=== PATIENT | male | born 1970 | race Caucasian/White ===

== ENCOUNTER 2023-08-07 13:32 | Emergency (ER) | payer OTHER ==
[2023-08-07 13:46] VITALS: TEMP 97.8; BMI 31.9
[2023-08-07 15:25] LABS: VENOUS BASE EXCESS 1.8 mmol/L (-2-2); VENOUS O2 SATURATION 59.8 % (70-80); VENOUS PCO2 45.1 mmHg (38-52); VENOUS PH 7.399 (7.310-7.410)
[2023-08-07 15:26] LABS: BASO % 0.6 % (0-2.0); HEMATOCRIT 47.1 % (35.4-49); HEMOGLOBIN 16.3 GM/dL (11.7-16.9); LYMPH % 30.3 % (8-40); MCH 29.8 pg (25.7-33.7); MCHC 34.7 g/dl (32.0-35.9); MEAN CELL VOLUME 86.1 fl (80-96); MEAN PLT VOLUME 8.6 fl (7.5-11.1); MONO % 6.3 % (3.8-10.2); NEUT % 60.8 % (42.8-82.8); PLATELET COUNT 186 10^3/uL (134-434); RBC 5.47 M/mm3 (4.00-5.60); RDW 13.5 % (11.9-15.9); WHITE BLOOD COUNT 7.5 K/mm3 (4.0-10.0)
[2023-08-07] MEDS: SODIUM CHLORIDE 0.9% 500 ML INFUS.BAG IV ONE (15:30)
[2023-08-07 15:43] LABS: CALCIUM 9.1 mg/dL (8.5-10.1)
[2023-08-07 15:44] LABS: ALBUMIN 3.8 g/dl (3.4-5.0); BLOOD UREA NITROGEN 16.3 mg/dL (7-18); MAGNESIUM 2.2 mg/dL (1.8-2.4)
[2023-08-07 15:48] LABS: CREATININE 1.2 mg/dL (0.55-1.3)
[2023-08-07 15:49] LABS: BILIRUBIN,TOTAL 0.9 mg/dL (0.2-1); TOT PROT 7.4 g/dl (6.4-8.2)
[2023-08-07] MEDS ORDERED: amLODIPine BESYLATE 5 MG TABLET (FP) ONE (17:04)
[2023-08-07] MEDS: amLODIPine BESYLATE 5 MG TABLET (FP) PO ONE (17:06)
[2023-08-07] MEDS ORDERED: hydrALAZINE HCL 10 MG TABLET ONE (18:21)
[2023-08-07] MEDS: hydrALAZINE HCL 10 MG TABLET PO ONE (18:26)
[2023-08-07] MEDS ORDERED: hydrALAZINE HCL 20 MG/ML VIAL ONE (19:47)
[2023-08-07] MEDS: hydrALAZINE HCL 20 MG/ML VIAL IVPUSH ONE (19:55)
[2023-08-07 20:25] LABS: URINE APPEARANCE CLEAR; URINE BILIRUBIN NEGATIVE (NEGATIVE); URINE COLOR YELLOW; URINE GLUCOSE (UA) 3+ (NEGATIVE); URINE KETONE NEGATIVE (NEGATIVE); URINE LEUK ESTERASE NEGATIVE (NEGATIVE); URINE NITRITE NEGATIVE (NEGATIVE); URINE PROTEIN TRACE (NEGATIVE); URINE UROBILINOGEN 0.2 mg/dL (0.2-1.0)
[2023-08-07 21:11] VITALS: BP 180/97; PULSE 84; RESP 18
[2023-08-08] MEDS ORDERED: hydrALAZINE HCL 10 MG TABLET PO ONE (18:09)
== END 2023-08-07 21:12 | disposition home or self-care (01) ==
LOC: JER 13:32
PROC: 3E030GC Introduction of Other Therapeutic Substance into Peripheral Vein, Open Approach (ICD-10-PCS; principal; 2023-08-07)
DX: E11.65 Type 2 diabetes mellitus with hyperglycemia (principal); I10 Essential (primary) hypertension; R42 Dizziness and giddiness; R30.9 Painful micturition, unspecified
CPT/HCPCS: 36415; 71046-TC-FY; 80053; 81003; 82010; 82803; 82962; 83735; 84484; 85025; 87077; 87086; 93005; 93010; 99285-25